=== PATIENT | male | born 1995 | race Caucasian/White ===

== ENCOUNTER 2018-05-13 23:00 | Emergency (ER) | payer OTHER ==
[~2018-05-13] VITALS: Ht 177.8 cm; Wt 83.5 kg
[2018-05-13 23:09] VITALS: BP 125/78; Ht 177.8 cm; Wt 83.5 kg
== END 2018-05-14 00:22 | disposition home or self-care (01) ==
LOC: ED 23:00
DX: N48.89 Other specified disorders of penis (principal)
CPT/HCPCS: 82962; 87491; 87591